=== PATIENT | male | born 1980 | race African-American/Black ===

== ENCOUNTER 2017-02-01 17:59 | Emergency (ER) | payer SELFPAY ==
[2017-02-01 18:09] VITALS: BP 127/105
[2017-02-01] MEDS ORDERED: Sodium Chloride 0.9% 10 ML Syringe FLUSH PRN (18:18)
[2017-02-01] MEDS ORDERED: Sodium Chloride 0.9% 1,000 ML IV ONE (18:23)
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
--- NOTE | 2017-02-01 18:58 | CT ---
Head CT Technique: Multiple axial sections through the brain were obtained. Intravenous contrast was not utilized. Comparison: No previous intracranial imaging. Findings: Ventricles along with basal cisterns and sulci over the convexities are within normal limits for the patient's age. No abnormal parenchymal densities are seen. No evidence of intracranial hemorrhage. No midline shift or mass effect is seen. Bone window settings were reviewed which shows no discrete calvarial abnormality. Minimal mucosal thickening is noted within a small portion of the ethmoid sinuses which is incidental. Impression: 1. Minimal sinus findings which are incidental. 2. Nothing acute is identified on noncontrast head CT exam. Diagnostic code #2
== END 2017-02-01 19:55 ==
LOC: JD.ED 17:59
DX: F10.120 Alcohol abuse with intoxication, uncomplicated (principal)
CPT/HCPCS: 36415; 70450; 80053; 80306; 81001; 85025; 96360; 99284; G0480; J7040